=== PATIENT | male | born 1975 | race African-American/Black ===

== ENCOUNTER 2017-11-12 10:16 | Outpatient (CLI) | payer BC ==
--- NOTE | 2017-11-12 11:19 | Diagnostic Imaging Report ---
Indication: Cough Technique: 2 views of the chest Comparison: None Findings: Lungs and pleural spaces are clear. The heart size is normal. Impression: Negative
== END 2017-11-12 12:16 | disposition home or self-care (01) ==
LOC: RAD 10:16
DX: R05 Cough (principal)
CPT/HCPCS: 71046